=== PATIENT | male | born 1945 | race Two or more races ===

== ENCOUNTER 2024-02-10 07:58 | Outpatient (CLI) | payer OTHER | END 2024-02-10 08:00 | disposition home or self-care (01) | LOC: NUCLEAR 07:58 | PROVIDERS: ATTEND Internal Medicine | DX: C34.2 Malignant neoplasm of middle lobe, bronchus or lung (principal); C34.90 Malignant neoplasm of unspecified part of unspecified bronchus or lung; C18.9 Malignant neoplasm of colon, unspecified | CPT/HCPCS: 78816; A9552 ==